=== PATIENT | female | born 1995 | race Two or more races ===

== ENCOUNTER 2018-03-09 20:03 | Emergency (ER) | payer OTHER ==
[~2018-03-09] VITALS: Ht 162.6 cm; Wt 90.7 kg
== END 2018-03-09 23:37 | disposition home or self-care (01) ==
LOC: ER 20:03
DX: K29.70 Gastritis, unspecified, without bleeding (principal); R51 Headache

== ENCOUNTER 2018-08-31 20:04 | Emergency (ER) | payer OTHER ==
[~2018-08-31] VITALS: Ht 162.6 cm; Wt 99.8 kg
== END 2018-08-31 22:17 | disposition home or self-care (01) ==
LOC: ER 20:04
DX: K29.60 Other gastritis without bleeding (principal)

== ENCOUNTER 2022-02-27 13:28 | Emergency (ER) | payer OTHER ==
[~2022-02-27] VITALS: Ht 162.6 cm; Wt 100.2 kg
[2022-02-27] MEDS ORDERED: DICLOFENAC SODI75 MG PO (17:13)
== END 2022-02-27 17:21 | disposition home or self-care (01) ==
LOC: ER 13:28
DX: R10.31 Right lower quadrant pain (principal); N83.201 Unspecified ovarian cyst, right side

== ENCOUNTER 2024-09-27 10:23 | Emergency (ER) | payer OTHER ==
[~2024-09-27] VITALS: Ht 162.6 cm; Wt 73.9 kg
[~2024-09-27 10:23] MED LIST: DICLOFENAC SODI75 MG PO
[2024-09-27] MEDS ORDERED: 0.9 % SODIUM CHLORIDE 1,000 ML IV ONE (14:15)
[2024-09-27 15:47] LABS: BASO % 0.3 % (0.1-1.2); EOS # 0.05 (0.04-0.54); EOS % 0.8 % (0.7-7.0); LYMPH # 2.51 (1.18-3.74); LYMPH % 38.9 % (19.3-53.1); MEAN PLATELET VOLUME 11.10 fl (9.4-12.4); MONO # 0.46 (0.24-0.82); MONO % 7.1 % (4.7-12.5); NEUT # 3.40 (1.56-6.13); NEUT % 52.7 % (34.0-71.1); RED CELL DISTRIBUTION WIDTH 12.7 % (11.6-14.4)
[2024-09-27 16:20] LABS: ALT/SGPT 18.0 U/L (12-78); AST/SGOT 15.0 U/L (15-37); BILIRUBIN TOTAL 0.26 mg/dL (0.3-1.2); BUN CREA RATIO 22.0 (7.0-25.0); CREATININE SERUM 0.63 mg/dL (0.55-1.02); GFR 112.52; GLOBULINA 3.6 G/DL (2.4-3.5); GLUCOSE FASTING 87.0 mg/dL (65-100); OSMOLALITY SERUM 281.0 MOSM/KG (275-295)
[2024-09-27 16:50] LABS: COVID-19 AG NEGATIVE (NEGATIVE)
== END 2024-09-27 18:05 | disposition home or self-care (01) ==
LOC: ER 10:23
PROVIDERS: Preventive Medicine Public Health & General Preventive Medicine
DX: R42 Dizziness and giddiness (principal); Z20.822 Contact with and (suspected) exposure to COVID-19